=== PATIENT | female | born 1975 | race Caucasian/White ===

== ENCOUNTER 2019-03-22 19:19 | Inpatient (IN) | payer MEDICAID ==
[2019-03-22] MEDS: SOD CHLORIDE 0.9% 1,000 ML IV (20:45)
[2019-03-22] MEDS: ONDANSETRON 4 MG INJ IV (20:45)
[2019-03-22] MEDS: HYDROmorphONE 1 MG/ML SYG IV (20:45)
[2019-03-22 20:47] LABS: ADD MAN DIFF? NO
[2019-03-22 20:52] LABS: WHITE BLOOD COUNT 8.1 10^3/ul (4.8-10.8)
[2019-03-22 20:52] LABS: BASOPHILS % 0.5 % (0.0-2.0); EOSINOPHILS # 0.1 10^3/ul (0.0-0.5); EOSINOPHILS % 0.6 % (0.0-7.0); HEMATOCRIT 39.3 % (37.0-47.0); HEMOGLOBIN 12.8 g/dl (12.0-16.0); LYMPHOCYTES # 2.5 10^3/ul (0.8-2.9); LYMPHOCYTES % 30.6 % (15.0-51.0); MEAN CORPUSCULAR HEMOGLOBIN 26.8 pg (29.0-33.0); MEAN CORPUSCULAR HGB CONC 32.6 g/dl (32.0-37.0); MEAN CORPUSCULAR VOLUME 82.4 fl (82.0-101.0); MEAN PLATELET VOLUME 10.6 fl (7.4-10.4); MONOCYTE # 0.7 10^3/ul (0.3-0.9); NEUTROPHIL # 4.7 10^3/ul (1.6-7.5); NEUTROPHILS % 58.8 % (39.0-77.0); PLATELET COUNT 405 10^3/UL (140-415); RED BLOOD COUNT 4.77 10^6/ul (4.20-5.40); RED CELL DISTRIBUTION WIDTH 14.7 % (11.5-14.5)
[2019-03-22 21:07] LABS: ALANINE AMINOTRANSFERASE 67 IU/L (13-69); ALBUMIN 4.7 g/dl (3.3-4.9); ALBUMIN/GLOBULIN RATIO 1.11; ALKALINE PHOSPHATASE 92 IU/L (42-121); ANION GAP 10 (5-13); ASPARTATE AMINO TRANSFERASE 52 IU/L (15-46); BILIRUBIN,INDIRECT 0.5 mg/dl (0-1.1); BILIRUBIN,TOTAL 0.5 mg/dl (0.2-1.3); BLOOD UREA NITROGEN 11 mg/dl (7-20); CALCIUM 9.7 mg/dl (8.4-10.2); CARBON DIOXIDE 25 mmol/L (21-31); CHLORIDE 106 mmol/L (97-110); CREATININE 0.56 mg/dl (0.44-1.00); Estimated GFR > 60 mL/min (>60); GLUCOSE 99 mg/dl (70-220); POTASSIUM 3.5 mmol/L (3.5-5.1); SODIUM 141 mmol/L (135-144); TOTAL PROTEIN 8.9 g/dl (6.1-8.1)
[2019-03-22 21:30] LABS: ADD UMIC NO; UR ASCORBIC ACID NEGATIVE (NEGATIVE); UR BACTERIA FEW /HPF (NONE SEEN); UR BILIRUBIN (Dip) NEGATIVE (NEGATIVE); UR BLOOD (Dip) NEGATIVE (NEGATIVE); UR CLARITY SLIGHTLY CLOUDY (CLEAR); UR COLOR YELLOW (YELLOW); UR GLUCOSE (Dip) NEGATIVE (NEGATIVE); UR KETONES (Dip) NEGATIVE (NEGATIVE); UR LEUKOCYTE ESTERASE (Dip) NEGATIVE Leu/ul (NEGATIVE); UR MUCUS MODERATE /HPF (NONE SEEN); UR NITRITE (Dip) NEGATIVE (NEGATIVE); UR RBC 6 /HPF (0-5); UR SPECIFIC GRAVITY (Dip) 1.025 (1.003-1.030); UR SQUAMOUS EPITHELIAL CELL FEW /HPF (FEW); UR TOTAL PROTEIN (Dip) NEGATIVE (NEGATIVE); UR UROBILINOGEN (Dip) 2+ mg/dL (NEGATIVE); UR WBC 1 /HPF (0-5)
[2019-03-22] MEDS: HYDROmorphONE 2 MG/ML SYG IV (23:07)
[2019-03-22] MEDS ORDERED: ONDANSETRON 4 MG INJ IV (23:30)
[2019-03-22] MEDS ORDERED: ACETAMINOPHEN 325 MG TAB PO (23:30)
[2019-03-23] MEDS ORDERED: NITROGLYCERIN (SL) 0.4 MG TAB SL (00:30)
[2019-03-23] MEDS ORDERED: ALBUTEROL/IPRATROPIUM (NEB) 3 ML AMP HHN (00:30)
[2019-03-23] MEDS ORDERED: ACETAMINOPHEN 325 MG TAB PO (00:30)
[2019-03-23] MEDS ORDERED: hydrALAzine 20 MG INJ IV (00:30)
[2019-03-23] MEDS ORDERED: LORAZEPAM 2 MG INJ IV (00:30)
[2019-03-23] MEDS ORDERED: METOCLOPRAMIDE 10 MG INJ IV (00:30)
[2019-03-23] MEDS ORDERED: NACL 0.9% 3 ML SYG IV (00:30)
[2019-03-23 00:47] LABS: FREE T4 (FREE THYROXINE) 0.88 ng/dl (0.64-1.79)
[2019-03-23] MEDS: SOD CHLORIDE 0.45% 1,000 ML IV ×2 (01:07→13:21)
[2019-03-23] MEDS: DOCUSATE SODIUM 100 MG CAP PO (01:07)
[2019-03-23] MEDS: morphine 2 MG INJ IV ×2 (01:07→08:42)
[2019-03-23] MEDS: HEPARIN 5,000 UNIT/1 ML VIAL SC ×2 (08:47→21:25)
[2019-03-23] MEDS ORDERED: BISACODYL (EC) 5 MG TAB PO (14:30)
[2019-03-23] MEDS: ONDANSETRON 4 MG INJ IV (14:53)
[2019-03-23] MEDS: HYDROCODONE/APAP (5/325) TAB PO (14:53)
[2019-03-23] MEDS: POLYETHYLENE GLYCOL 17 GM PACKET PO (21:23)
[2019-03-24 05:56] LABS: ADD MAN DIFF? NO
[2019-03-24 05:58] LABS: BASOPHILS % 0.5 % (0.0-2.0); EOSINOPHILS # 0.1 10^3/ul (0.0-0.5); EOSINOPHILS % 1.1 % (0.0-7.0); HEMATOCRIT 37.8 % (37.0-47.0); HEMOGLOBIN 12.4 g/dl (12.0-16.0); LYMPHOCYTES # 2.2 10^3/ul (0.8-2.9); LYMPHOCYTES % 27.4 % (15.0-51.0); MEAN CORPUSCULAR HEMOGLOBIN 26.8 pg (29.0-33.0); MEAN CORPUSCULAR HGB CONC 32.8 g/dl (32.0-37.0); MEAN CORPUSCULAR VOLUME 81.8 fl (82.0-101.0); MEAN PLATELET VOLUME 10.6 fl (7.4-10.4); MONOCYTE # 0.6 10^3/ul (0.3-0.9); MONOCYTES % 7.6 % (0.0-11.0); NEUTROPHIL # 4.9 10^3/ul (1.6-7.5); NEUTROPHILS % 62.9 % (39.0-77.0); PLATELET COUNT 343 10^3/UL (140-415); RED BLOOD COUNT 4.62 10^6/ul (4.20-5.40); RED CELL DISTRIBUTION WIDTH 14.8 % (11.5-14.5)
[2019-03-24 05:58] LABS: WHITE BLOOD COUNT 7.9 10^3/ul (4.8-10.8)
[2019-03-24 06:31] LABS: ANION GAP 10 (5-13); BLOOD UREA NITROGEN 9 mg/dl (7-20); CALCIUM 9.3 mg/dl (8.4-10.2); CARBON DIOXIDE 25 mmol/L (21-31); CHLORIDE 105 mmol/L (97-110); CREATININE 0.51 mg/dl (0.44-1.00); Estimated GFR > 60 mL/min (>60); GLUCOSE 86 mg/dl (70-220); PHOSPHORUS 5.2 mg/dl (2.5-4.9); POTASSIUM 3.9 mmol/L (3.5-5.1); SODIUM 140 mmol/L (135-144)
[2019-03-24 06:32] LABS: CHOL/HDL RATIO 3.8 RATIO; HDL CHOLESTEROL 46 mg/dl (34-88); LDL CHOLESTEROL,CALCULATED 110 mg/dl; TRIGLYCERIDES 108 mg/dl (0-149)
[2019-03-24 06:32] LABS: CHOLESTEROL 178 mg/dl (100-200)
[2019-03-24 07:40] LABS: HEMOGLOBIN A1C 5.7 % (0-5.9)
[2019-03-24] MEDS: HYDROCODONE/APAP (5/325) TAB PO ×2 (08:00→19:17)
[2019-03-24] MEDS ORDERED: METHYLPREDNISOLONE (MEDROL) DOSE PACK PO (10:30)
[2019-03-24] MEDS: METHYLPREDNISOLONE 4 MG TAB PO (12:48)
[2019-03-24] MEDS: POLYETHYLENE GLYCOL 17 GM PACKET PO ×2 (12:48→20:23)
[2019-03-24] MEDS: FAMOTIDINE 20 MG TAB PO ×2 (12:48→20:23)
[2019-03-24] MEDS: HEPARIN 5,000 UNIT/1 ML VIAL SC ×2 (12:49→20:24)
[2019-03-25] MEDS: METHYLPREDNISOLONE 4 MG TAB PO ×4 (06:22→20:22)
[2019-03-25 06:30] LABS: ADD MAN DIFF? NO
[2019-03-25 06:35] LABS: BASOPHILS % 0.3 % (0.0-2.0); HEMATOCRIT 38.8 % (37.0-47.0); HEMOGLOBIN 12.6 g/dl (12.0-16.0); LYMPHOCYTES # 2.3 10^3/ul (0.8-2.9); MEAN CORPUSCULAR HEMOGLOBIN 26.4 pg (29.0-33.0); MEAN CORPUSCULAR HGB CONC 32.5 g/dl (32.0-37.0); MEAN CORPUSCULAR VOLUME 81.3 fl (82.0-101.0); MEAN PLATELET VOLUME 10.1 fl (7.4-10.4); MONOCYTE # 0.8 10^3/ul (0.3-0.9); NEUTROPHIL # 6.7 10^3/ul (1.6-7.5); NEUTROPHILS % 68.1 % (39.0-77.0); PLATELET COUNT 387 10^3/UL (140-415); RED BLOOD COUNT 4.77 10^6/ul (4.20-5.40); RED CELL DISTRIBUTION WIDTH 14.5 % (11.5-14.5)
[2019-03-25 06:35] LABS: WHITE BLOOD COUNT 9.8 10^3/ul (4.8-10.8)
[2019-03-25 07:05] LABS: MAGNESIUM 2.1 mg/dl (1.7-2.5)
[2019-03-25 07:05] LABS: PHOSPHORUS 4.8 mg/dl (2.5-4.9)
[2019-03-25 07:16] LABS: ANION GAP 10 (5-13); BLOOD UREA NITROGEN 13 mg/dl (7-20); CALCIUM 9.6 mg/dl (8.4-10.2); CARBON DIOXIDE 26 mmol/L (21-31); CHLORIDE 104 mmol/L (97-110); CREATININE 0.39 mg/dl (0.44-1.00); Estimated GFR > 60 mL/min (>60); GLUCOSE 102 mg/dl (70-220); SODIUM 140 mmol/L (135-144)
[2019-03-25] MEDS: POLYETHYLENE GLYCOL 17 GM PACKET PO ×2 (09:07→20:25)
[2019-03-25] MEDS: FAMOTIDINE 20 MG TAB PO ×2 (09:07→20:22)
[2019-03-25] MEDS: HEPARIN 5,000 UNIT/1 ML VIAL SC ×2 (09:11→20:24)
[2019-03-25] MEDS: MAGNESIUM HYDROXIDE 30ML CUP PO (09:11)
[2019-03-26 06:02] LABS: ADD MAN DIFF? NO
[2019-03-26 06:07] LABS: WHITE BLOOD COUNT 9.7 10^3/ul (4.8-10.8)
[2019-03-26 06:07] LABS: BASOPHIL # 0.1 10^3/ul (0.0-0.1); BASOPHILS % 0.6 % (0.0-2.0); EOSINOPHILS % 0.1 % (0.0-7.0); HEMATOCRIT 41.9 % (37.0-47.0); HEMOGLOBIN 13.7 g/dl (12.0-16.0); LYMPHOCYTES % 20.6 % (15.0-51.0); MEAN CORPUSCULAR HEMOGLOBIN 26.9 pg (29.0-33.0); MEAN CORPUSCULAR HGB CONC 32.7 g/dl (32.0-37.0); MEAN CORPUSCULAR VOLUME 82.2 fl (82.0-101.0); MEAN PLATELET VOLUME 10.1 fl (7.4-10.4); MONOCYTE # 0.5 10^3/ul (0.3-0.9); MONOCYTES % 5.5 % (0.0-11.0); NEUTROPHILS % 72.7 % (39.0-77.0); PLATELET COUNT 438 10^3/UL (140-415); RED CELL DISTRIBUTION WIDTH 14.6 % (11.5-14.5)
[2019-03-26 06:28] LABS: ANION GAP 11 (5-13); BLOOD UREA NITROGEN 14 mg/dl (7-20); CALCIUM 9.5 mg/dl (8.4-10.2); CARBON DIOXIDE 27 mmol/L (21-31); CHLORIDE 103 mmol/L (97-110); Estimated GFR > 60 mL/min (>60); GLUCOSE 120 mg/dl (70-220); MAGNESIUM 2.4 mg/dl (1.7-2.5); POTASSIUM 4.4 mmol/L (3.5-5.1); SODIUM 141 mmol/L (135-144)
[2019-03-26 06:28] LABS: PHOSPHORUS 4.7 mg/dl (2.5-4.9)
[2019-03-26] MEDS: METHYLPREDNISOLONE 4 MG TAB PO ×4 (07:51→20:28)
[2019-03-26] MEDS: FAMOTIDINE 20 MG TAB PO ×2 (08:42→20:29)
[2019-03-26] MEDS: POLYETHYLENE GLYCOL 17 GM PACKET PO ×2 (08:42→21:00)
[2019-03-26] MEDS: HEPARIN 5,000 UNIT/1 ML VIAL SC ×2 (08:49→20:30)
[2019-03-27 06:01] LABS: ADD MAN DIFF? NO
[2019-03-27 06:05] LABS: BASOPHIL # 0.1 10^3/ul (0.0-0.1); EOSINOPHILS % 0.2 % (0.0-7.0); HEMATOCRIT 42.5 % (37.0-47.0); HEMOGLOBIN 13.8 g/dl (12.0-16.0); LYMPHOCYTES # 2.5 10^3/ul (0.8-2.9); LYMPHOCYTES % 24.1 % (15.0-51.0); MEAN CORPUSCULAR HGB CONC 32.5 g/dl (32.0-37.0); MEAN PLATELET VOLUME 9.8 fl (7.4-10.4); MONOCYTE # 0.8 10^3/ul (0.3-0.9); MONOCYTES % 7.4 % (0.0-11.0); NEUTROPHIL # 6.8 10^3/ul (1.6-7.5); NEUTROPHILS % 66.5 % (39.0-77.0); PLATELET COUNT 452 10^3/UL (140-415); RED BLOOD COUNT 5.12 10^6/ul (4.20-5.40); RED CELL DISTRIBUTION WIDTH 14.4 % (11.5-14.5)
[2019-03-27 06:05] LABS: WHITE BLOOD COUNT 10.3 10^3/ul (4.8-10.8)
[2019-03-27 06:37] LABS: MAGNESIUM 2.4 mg/dl (1.7-2.5)
[2019-03-27 06:37] LABS: PHOSPHORUS 4.7 mg/dl (2.5-4.9)
[2019-03-27 06:48] LABS: ANION GAP 10 (5-13); BLOOD UREA NITROGEN 16 mg/dl (7-20); CALCIUM 9.4 mg/dl (8.4-10.2); CARBON DIOXIDE 28 mmol/L (21-31); CHLORIDE 103 mmol/L (97-110); CREATININE 0.41 mg/dl (0.44-1.00); Estimated GFR > 60 mL/min (>60); GLUCOSE 113 mg/dl (70-220); POTASSIUM 4.6 mmol/L (3.5-5.1); SODIUM 141 mmol/L (135-144)
[2019-03-27] MEDS: POLYETHYLENE GLYCOL 17 GM PACKET PO (09:10)
[2019-03-27] MEDS: FAMOTIDINE 20 MG TAB PO (09:10)
[2019-03-27] MEDS: METHYLPREDNISOLONE 4 MG TAB PO ×2 (09:10→13:20)
[2019-03-27] MEDS: HEPARIN 5,000 UNIT/1 ML VIAL SC (09:20)
== END 2019-03-27 17:35 | disposition home or self-care (01) | DRG 552 ==
LOC: 2NE 23:29 → E/R 19:19 → 2NE 03-23 20:30
DX: M51.26 Other intervertebral disc displacement, lumbar region (principal); M48.061 Spinal stenosis, lumbar region without neurogenic claudication; E66.9 Obesity, unspecified; Z68.36 Body mass index [BMI] 36.0-36.9, adult; N31.9 Neuromuscular dysfunction of bladder, unspecified
CPT/HCPCS: 36415; 72149; 74176; 80048; 80053; 80061; 81001; 81003; 81025; 83036; 83735; 84100; 84439; 84443; 85025; 96374; 96375; 96376; 97110; 97116; 97162; 97165; 97530; 97535; 99285-25